=== PATIENT | female | born 1975 | race Caucasian/White ===

== ENCOUNTER 2016-11-16 18:11 | Emergency (ER) | payer OTHER ==
[2016-11-16 20:10] LABS: BASOPHILS 0.2 % (0.0-2.0); EOSINOPHILS 3.5 % (0-7); HEMATOCRIT 39.6 % (36.0-48.0); HEMOGLOBIN 13.4 g/dL (12-16); IMMATURE GRANULOCYTES 0.2 % (0-5); LYMPHOCYTES 27.1 % (15-50); MCH 31.9 pg (26.0-34.0); MCHC 33.8 g/dL (31.0-37.0); MCV 94.3 fL (80.0-100.0); MEAN PLATELET VOLUME 10.6 fL (7.4-10.4); MONOCYTES 8.4 % (2-11); NEUTROPHILS 60.6 % (40-80); PLATELET COUNT 254 10x3/uL (130-400); RDW 12.8 % (11.5-14.5); WBC 10.3 10x3/uL (4.8-10.8)
[2016-11-16 20:52] LABS: APPEARANCE CLEAR (CLEAR); BILIRUBIN NEGATIVE (NEGATIVE); COLOR YELLOW (YELLOW); GLUCOSE NEGATIVE (NEGATIVE); KETONE NEGATIVE (NEGATIVE); LEUKOCYTE ESTERASE NEGATIVE (NEGATIVE); NITRITE NEGATIVE (NEGATIVE); PROTEIN NEGATIVE (NEGATIVE); SPECIFIC GRAVITY 1.015 (1.005-1.020); UROBILINOGEN NORMAL (NORMAL)
[2016-11-16 20:54] LABS: WHITE CELLS - URINE OCC /hpf (0-5)
[2016-11-16 20:55] LABS: BACTERIA FEW /hpf (NONE SEEN); EPITHELIAL CELLS OCC /hpf (0-5); RED CELLS - URINE 0-5 /hpf (0-5)
== END 2016-11-17 08:14 | disposition home or self-care (01) ==
LOC: D.ER 18:11
PROVIDERS: Emergency Medicine
DX: R10.9 Unspecified abdominal pain (principal); I10 Essential (primary) hypertension

== ENCOUNTER → 2016-11-26 08:15 | Outpatient (CLI) | payer OTHER | END | disposition home or self-care (01) | LOC: D.US 08:15 | DX: R10.11 Right upper quadrant pain (principal) ==

== ENCOUNTER → 2016-12-11 08:03 | Outpatient (CLI) | payer OTHER | END | disposition home or self-care (01) | LOC: D.NM 08:03 | DX: R10.9 Unspecified abdominal pain (principal) ==

== ENCOUNTER 2017-01-11 05:03 | Day surgery (SDC) | payer OTHER ==
[2017-01-08 11:48] LABS: HEMOGLOBIN 13.7 g/dL (12-16); MCH 32.2 pg (26.0-34.0); MCHC 34.3 g/dL (31.0-37.0); MCV 93.9 fL (80.0-100.0); MEAN PLATELET VOLUME 10.7 fL (7.4-10.4); RBC 4.26 10x6/uL (4.00-5.40); RDW 12.4 % (11.5-14.5); WBC 8.9 10x3/uL (4.8-10.8)
[~2017-01-11] VITALS: Ht 162.6 cm; Wt 94.3 kg
[~2017-01-11 05:03] MED LIST: COLACE100 MG PO; HYDROCODON-ACE1 EAC7 PO; LEVOTHYROXINE50 MCG PO; LISINOPRIL10 MG PO; OMEPRAZOLE20 M1 PO; ZOFRAN ODT4 MG/UDTAB PO
[2017-01-11 07:14] VITALS: BP 117/77; Ht 162.6 cm; Wt 94.3 kg
[2017-01-11] MEDS ORDERED: HYDROCODON-ACE1 EAC7 PO (09:09)
--- NOTE | 2017-01-11 10:14 | NUR ---
1000 NAUSEA, BASIN GIVEN, COOL CLOTHS AND ALCOHOL SWABS PROVIDED
--- NOTE | 2017-01-11 22:58 | OP ---
PATIENT NAME: ALEIDA PRIETO MEDICAL RECORD: [id number] :[birth year] [facility] ADMISSION DATE: SURGEON: DAREN FLOYD MD DATE OF OPERATION: 01/11/2017 SURGEON: Daren Floyd MD. PREOPERATIVE DIAGNOSES: 1. Biliary dyskinesia. 2. Right upper quadrant pain, history of gallstone pancreatitis 6 years ago. POSTOPERATIVE DIAGNOSES: 1. Biliary dyskinesia. 2. Right upper quadrant pain, history of gallstone pancreatitis 6 years ago. PROCEDURE PERFORMED: Laparoscopic cholecystectomy. ANESTHESIA: General. COMPLICATIONS: None. OPERATIVE COURSE: After consent was obtained, the patient was taken to the operating room and placed in supine position on the operating table. Next, general anesthesia was given via endotracheal intubation after a timeout was taken to confirm the correct patient and procedure. The abdomen was prepped and draped in typical sterile fashion. Local anesthetic was injected just above the umbilicus. A stab incision was made with 11-blade scalpel. Using a 5-mm bladeless optical trocar, the abdomen was entered under direct laparoscopic vision. Adequate pneumoperitoneum was achieved. The abdominal cavity was inspected. No evidence of bowel injury. No evidence of bleeding. The patient was then placed in the steep reverse Trendelenburg position. All remaining trocars were placed after the administration of local anesthetic, two 5-mm trocars in the right upper quadrant and 11-mm trocar in the subxiphoid position. The fundus of the gallbladder was grasped and retracted cephalad. The fundus of the gallbladder was grasped and retracted laterally. The peritoneum was incised using electrocautery. Blunt dissection was then performed with a [place] dissector until the critical view was obtained. The cystic duct lateral, cystic artery medial, liver in the posterior window. Three clips were placed in the proximal cystic duct, 1 clip distal and 2 clips were placed in the proximal cystic artery. The duct and artery were then transected with laparoscopic Metzenbaum scissors. The remaining portion of the gallbladder was dissected off the liver bed using electrocautery. Once complete, it was grasped with the tenaculum and removed through the 11-mm trocar and sent for permanent pathology. The operative field was then copiously irrigated and suctioned. Careful attention was paid to hemostasis, which was obtained in the liver bed using electrocautery. Again, at this time, the abdominal cavity was copiously irrigated and suctioned. There is no evidence of bowel injury. No evidence of bleeding. The operative site was inspected. There were [address] in the duct, [address] in the artery. There was no evidence of bleeding or bile leak from the liver bed. At this time, all remaining instruments were removed. The abdomen was desufflated. Trocars removed. Skin was closed with 4-0 Monocryl, Mastisol and Steri-Strips. At the end of the case, all needle and instrument counts were correct. No complications occurred. The patient was extubated and transferred to the PACU in stable condition. OPERATIVE REPORT [id number] ALEIDA PRIETO TRANSINT:[id number] Voice Confirmation ID: [id number] DOCUMENT ID: [id number] DAREN FLOYD MD at 2258 CC: [id number] DICTATION DATE: 01/11/17905 ECHOCARDIOGRAPHY RADIOLOGY TECHNOLOGIST: 01/11/17 1239 [facility] 01/11/17 [id number] [place] [address]
== END 2017-01-11 13:00 | disposition home or self-care (01) ==
LOC: D.OPS 05:03 → D.PAN 07:30 → D.OPS 08:30
PROVIDERS: Anesthesiology
DX: K82.8 Other specified diseases of gallbladder (principal)

== ENCOUNTER → 2017-09-17 16:09 | Outpatient (CLI) | payer OTHER, BC ==
[2017-01-11 07:14] VITALS: BMI 35.8
== END | disposition home or self-care (01) ==
LOC: D.CT 16:09
DX: N20.0 Calculus of kidney (principal)

== ENCOUNTER → 2017-11-16 11:03 | Outpatient (CLI) | payer OTHER, BC ==
[2017-01-11 07:14] VITALS: BMI 35.8
== END | disposition home or self-care (01) ==
LOC: D.NM 11:03
DX: R10.10 Upper abdominal pain, unspecified (principal)

== ENCOUNTER 2019-04-25 10:56 | Observation (INO) | payer BC, MEDICAID ==
[2019-04-25] VITALS (9 sets, daily range): BP systolic 104–133; BP diastolic 65–81; Ht 160 cm; Wt 76.9 kg
[~2019-04-25] VITALS: Ht 160 cm; Wt 76.9 kg
--- NOTE | ~2019-04-25 | HEMODYNAMI ---
PATIENT:ALEIDA PRIETO MEDICAL RECORD: [id number] : [birth year] LOCATION:[facility] D.2123 ADMISSION DATE: 04/25/19 Generatedon:04/26/201915:11 Patient name: ALEIDA PRIETO Patient #: [id number] SSN: [id number] : 1975 Date of study: 04/26/2019 Page: Of Hemodynamic Procedure Report Patient Data Patient Demographics Procedure consent was obtained First Name: ALEIDA Gender: Female Last Name: CONNER : 1975 Patient #: [id number] Age: 43 year(s) Race: SSN: [id number] Additional ID: [id number] Contact details Address: [address] [place] [address] State: [place] City: [place] Zip code: [address] Past Medical History Allergies Allergen Reaction Date Comments Reported Other allergy 04/26/2019 iodine, nexium Admission Admission Data Admission Date: 04/25/2019 Admission Time: 13:17 Arrival Date: 04/26/2019 Arrival Time: 0:00 Admit Source: Emergency Insurance Payor: Private department health insurance, Medicaid Room #: D.2123 [facility] #: [id number] Height (in.): 62.99 BSA: 1.79 (m2) Height (cm.): 160 BMI: 29.69 (kg/m2) Weight (lbs.): 167.55 Weight (kg.): 76 Lab Results Lab Result Date: 04/26/2019 Lab Result Time: 5:27 Biochemistry Name Units Result Min Max BUN mg/dl 13 --(--*-)-- 7 18 Creatinine mg/dl 0.8 --(-*--)-- 0.6 1.3 CBC Name Units Result Min Max Hematocrit % 39 *-(----)-- 42 54 Hemoglobin g/dl 13.6 --(*---)-- 13.5 17.5 Procedure Procedure Types Cath Procedure Diagnostic Procedure [facility] w/Coronaries Procedure Description Procedure Date Procedure Date: 04/26/2019 Procedure Start Time: 14:56 Procedure End Time: 15:07 Procedure Staff Name Function Johnson Magana MD Performing Physician Gladys Cisneros RT Monitor Rolando Villatoro RT Scrub Lobo Tsai RN Nurse Rajesh Sarkar RN Program Schedule Clerk Indication Angina Procedure Data Cath Procedure Fluoroscopy Diagnostic fluoroscopy Total fluoroscopy Time: 1.5 time: 1.5 min min Diagnostic fluoroscopy Total fluoroscopy dose: 285 dose: 285 mGy mGy Contrast Material Contrast Material Type Amount (ml) Isovue 300 32 Entry Location Entry Primary Successful Side Size Upsize Upsize Entry Closure [place] ccessful Closure Location (Fr) 1 (Fr) 2 (Fr) Remarks Device Remarks Radial Right 6 Fr Mechanical artery Short Compression Estimated blood loss: 5 ml Diagnostic catheters Device Type Used For End Catheter Placement DIAGNOSTIC Willard 110cm 5 Procedure Fr catheter ([id number]) Procedure Complications No complications Procedure Medications Medication Administration Route Dosage Oxygen etCO2 Nasal cannula 2 l/min Lidocaine 2% added to field 20 Heparin Flush Bag added to field 2 bags (1000units/500ml NS) 0.9% NaCl I.V. 100 ml/hr Versed I.V. 2 mg Fentanyl I.V. 100 mcg Versed I.V. 1 mg Fentanyl I.V. 50 mcg Versed I.V. 1 mg Fentanyl I.V. 50 mcg Versed I.V. 0.5 mg Hemodynamics Rest BSA: 1.79 (m2) O2 Consumption: Estimated: 195.76 (ml/min) O2 Consumption indexed : Estimated:109.36 (ml/min/m) Heart Rate: 92 (bpm) Pressure Samples Time Site Value (mmHg) Purpose Heart Use Rate(bpm) 15:01 LV 121/19,12 Snapshot 92 15:01 AO 88/65(77) Pullback 85 15:01 LV 93/10,15 Pullback 85 Gradients Valve Time Site 1 Site 2 Mean SEP/DFP Peak To Heart Use (mmHg) (sec/min) Peak Rate (mmHg) (bpm) Aortic 15:01 LV AO 4 15 5 85 93/10,15 88/65(77) Calculations Valve P-P Mean Valve Index Valve Source Name Gradient Area Flow (cm2) Aortic 5 4 5 4 Snapshots Pre Cath Intra NCS Post Cath Vital Signs Time Heart Resp SPO2 etCO2 NIBP Rhythm Pain Sedation Rate (ipm) (%) (mmHg) (mmHg) Status Level (bpm) 14:50:02 65 16 97 25.5 104/67(78) NSR 0 (11) 10(A) , No pain 14:55:54 68 17 94 29.2 90/57(82) NSR 0 (11) 10(A) , No pain 15:00:05 76 14 93 36.7 95/53(67) NSR 0 (11) 9(A) , No pain 15:06:40 72 15 94 36 96/74(89) NSR 0 (11) 9(A) , No pain 15:09:59 74 14 94 34.5 93/65(85) NSR 0 (11) 10(A) , No pain Medications Time Medication Route Dose Verified Delivered Reason Notes Eff ectiveness by by 14:41:42 Oxygen etCO2 2 Johnson Rajesh used for Nasal l/min Lexa Antonina procedure cannula MD HOPSON 14:41:50 Lidocaine 2% added 20ml Johnson Johnson for local to vial [facility] anesthetic field MD CAMARA 14:41:57 Heparin Flush added 2 Johnson Johnson used for Bag to bags [facility] procedure (1000units/500ml field MD CAMARA NS) 14:42:07 0.9% NaCl I.V. 100 Johnson Rajesh Per ml/hr St Matt Sarkar physician RN 14:50:03 Versed I.V. 2 mg Johnson Buffie for St Matt Tsai RN sedation 14:50:09 Fentanyl I.V. 100 Johnson Buffie for [facility] St Matt Tsai RN sedation 14:55:15 Versed I.V. 1 mg Johnson Buffie for IzzyMatt Tsai RN sedation 14:55:19 Fentanyl I.V. 50 Johnson Buffie for mcg IzzyMatt Tsai RN sedation 15:00:56 Versed I.V. 1 mg Johnson Buffie for IzzyMatt Tsai RN sedation 15:01:00 Fentanyl I.V. 50 Johnson Buffie for [facility] IzzyMatt Tsai RN sedation 15:04:32 Versed I.V. 0.5 Johnson Buffie for mg St Matt Tsai RN sedation Procedure Log Time Note 14:23:01 Informed consent obtained and on chart 14:25:25 Rajesh Sarkar RN sent for patient. Start room use. 14:33:05 Patient allergic to Other allergyiodine, nexium 14:34:22 Admit Source: Emergency department 14:34:28 Arrival Date: 04/26/2019 12:00:00 AM 14:34:40 Insurance Payor : Private health insurance, Medicaid 14:35:05 Patient Height : 62.99 inches 14:35:08 Patient Weight : 167.55 lbs 14:36:44 Lab Result : BUN 13 mg/dl 14:36:44 Lab Result : Hematocrit 39 % 14:36:44 Lab Result : Hemoglobin 13.6 g/dl 14:36:44 Lab Result : Creatinine 0.8 mg/dl 14:37:31 Indication : Angina 14:38:02 ACC Patient presents with Unstable Angina CCS Anginal Class 4--Inability to carry out any physical activity w/o angina. Angina may occur at rest. 14:38:09 ACCPatient has been prescribed/administered the following anti-anginal medication within the last 2 weeks: KAVITHA-Inhibitor 14:38:20 Procedure Status Urgent Heart Cath (IP). 14:38:47 Time tracking: Regular hours (M-F 7:00 - 5:00) 14:38:59 Plan of Care:Hemodynamics will remain stable., Cardiac rhythm will remain stable., Comfort level will be maintained., Respiratory function will remain adequate., Patient/ family verbilizes understanding of procedure., Procedure tolerated without complication., Recovers from procedure without complications.. 14:39:13 Patient received from Med II to CCL 1 Alert and oriented. Tansferred to table in Supine position. 14:39:15 Warm blankets applied, and sherley hugger turned on for patient comfort. 14:39:16 Correct patient and procedure confirmed by team. 14:39:17 ECG and BP/O2 sat monitors applied to patient. 14:39:43 H&P Date Dictated: 04/25/2019 Within 30 days and on chart.. 14:39:45 Pre-procedure instructions explained to patient. 14:39:47 Pre-op teaching completed and patient verbalized understanding. 14:39:51 Family in patients room. 14:39:55 Patient NPO since Breakfast. 14:41:42 Oxygen 2 l/min etCO2 Nasal cannula was administered by Rajesh Sarkar RN; used for procedure; 14:41:50 Lidocaine 2% 20ml vial added to field was administered by Johnson Magana MD; for local anesthetic; 14:41:57 Heparin Flush Bag (1000units/500ml NS) 2 bags added to field was administered by Johnson Magana MD; used for procedure; 14:42:07 0.9% NaCl 100 ml/hr I.V. was administered by Rajesh Sarkar RN; Per physician; 14:43:42 Is patient on blood thinner?Yes 14:43:51 PRE LOADED ON PLAVIX 14:43:52 Patient diabetic? No. 14:43:55 Patient not . Patient has had tubal. 14:44:01 Previous problem with sedation/anesthesia? No ? 14:44:03 Snore? Yes 14:44:07 Sleep apnea? No 14:44:09 Deviated septum? No 14:44:10 Opens mouth fully? Yes 14:44:11 Sticks out tongue? Yes 14:44:15 Airway obstruction? No ? 14:44:17 Dentures? No ? 14:44:20 Is the patient allergic to Iodine/contrast media? Yes. 14:44:21 Was the patient premedicated? Yes 14:44:38 Modified Yrn's test Ulnar < 7 seconds 14:44:40 Patient pain scale 0/10 ?. 14:44:44 IV patent on arrival in right antecubital with 0.9% NaCl at [facility]. 14:44:46 Lab results completed and on chart. 14:44:50 Right Radial & Right Groin area was prepped with chlora-prep and draped in sterile fashion 14:44:51 Alarms reviewed by R. N. 14:44:51 Sharps counted by scrub and verified by R.N. 14:49:41 --------ALL STOP TIME OUT------ 14:49:42 Final Timeout: patient, procedure, and site verified with staff and physician. All members of the team are in agreement. 14:49:45 Right Radial & Right Groin site verified by team. 14:49:49 Fire Safety Assessment: A--An alcohol-based skin anteseptic being used preoperatively., C--Open oxygen or nitrous oxide is being used., D--An ESU, laser, or fiber-optic light is being used. 14:49:56 Physical assessment completed. ASA score P 2 - A patient with mild systemic disease as per Johnson Magana MD. 14:49:58 2) 60-89 Mildly reduced kidney function, and other findings (as for stage 1) point to kidney disease. 14:50:01 Maximum allowable contrast dose (3.7 X eGFR X 0.75)230 ml. 14:50:03 Versed 2 mg I.V. was administered by Lobo Tsai RN; for sedation; 14:50:06 Sedation plan: IV Moderate Sedation Medication:Versed, Fentanyl 14:50:09 Fentanyl 100 mcg I.V. was administered by Lobo Tsai RN; for sedation; 14:50:13 Use device set Radial Dx or PCI 14:50:26 ACIST Syringe (54644) opened to sterile field. 14:50:28 Bag Decanter (2002S) opened to sterile field. 14:50:29 ACIST Hand Control (47322) opened to sterile field. 14:50:29 ACIST Manifold (49700) opened to sterile field. 14:50:30 Tegaderm 4 x 4 (1626W) opened to sterile field. 14:50:35 Medline Cath Pack ([id number]) opened to sterile field. 14:50:39 MBrace Wrist Support (889351877) opened to sterile field. 14:51:08 EMERALD Guide Wire (508-085) opened to sterile field. 14:51:10 SHEATH 6FR RAIN (7599389) opened to sterile field. 14:55:13 Zero performed for pressure channel P1 14:55:15 Versed 1 mg I.V. was administered by Lobo Tsai RN; for sedation; 14:55:17 Procedure started. 14:55:17 Full Disclosure recording started 14:55:19 Fentanyl 50 mcg I.V. was administered by Lobo Tsai RN; for sedation; 14:55:43 Zero performed for pressure channel P1 14:56:00 Zero performed for pressure channel P1 14:56:07 Zero performed for pressure channel P1 14:56:18 Local anesthetic to right femoral artery with Lidocaine 2% by Johnson Magana MD.INITIAL ACCESS ONLY 14:56:49 Vital chart was started 14:58:58 A 6 Fr Short sheath was inserted into the Right Radial artery 14:59:22 A DIAGNOSTIC Willard 110cm 5 Fr catheter (462670) was advanced over the wire and used for Procedure. 15:00:56 Versed 1 mg I.V. was administered by Lobo Tsai RN; for sedation; 15::00 Fentanyl 50 mcg I.V. was administered by Lobo Tsai RN; for sedation; 15::05 LV gram done using HERNANDEZ 15::09 Injector settings: Ml/sec: 7, Volume: 15, 15:01:26 LV hemodynamics recorded. 15:01:47 EF : 55 % 15:02:14 RCA angiography performed. 15:03:18 LCA angiography performed. 15:03:23 Catheter removed. 15::25 ACCDominant side:Right 15:04:04 Procedure ended.(Physican Out) 15:04:28 Sheath removed intact; hemostasis achieved with Mechanical Compression to the Right Radial artery. 15:04:32 Versed 0.5 mg I.V. was administered by Lobo Tsai RN; for sedation; 15:05:13 Fluoroscopy time 01.50 minutes. 15:05:18 Fluoroscopy dose: 285 mGy 15::18 Flurop Dose total: 285 15::24 Dose Area Product 10207. mGy/cm. 15:05:27 Contrast amount:Isovue 300 32ml. 15:05:29 Maximum allowable dose exceeded? No. 15:05:36 ZEPHYR REGULAR TR BAND (095780) opened to sterile field. 15:05:39 Sharps counted by scrub and verified by R.N. 15:05:41 Carey band inflated with 8cc of air. 15:06:09 Post-procedure physical assessment completed. ASA score P 2 - A patient with mild systemic disease as per Johnson Magana MD. 15:06:12 Post procedure rhythm: sinus rhythm 15:06:15 Estimated blood loss: 5 ml 15:06:18 Post procedure instruction explained to patient.Patient verbalizes understanding. 15:06:18 Patient needs reinforcement of post procedure teaching. 15:06:39 Procedure and supply charges have been captured, reviewed, submitted and are correct. 15:07:07 Procedure Complication : No complications 15:07:09 Vital chart was stopped 15:07:09 See physician's report for complete and final results. 15:07:11 Report given to Pre/Post Procedure Room. 15:07:13 Patient transfered to Pre/Post Procedure Room with Bed. 15:07:21 Procedure ended. 15:07:21 Full Disclosure recording stopped 15:07:33 End room use (Document Last) Device Usage Item Name Manufacture Quantity Catalog Hospital Part Current [facility] l Lot# / Number Charge Number Stock Stock Serial# Code ACIST Acist 1 28984 [id number] 803094 027359 20 Syringe Medical (49060) Systems Inc Bag Microtek 1 2001S 038839 84874 483940 5 Decanter Medical Inc. (2001S) ACIST Hand Acist 1 05410 603779 146791 280026 5 Control Medical (65782) Systems Inc ACIST Acist 1 76270 278971 879683 351495 5 Manifold Medical (85072) Systems Inc Tegaderm 4 3M 1 1626W 617855 719483 482405 5 x 4 (1626W) Medline Medline 1 [id number] 495343 10026 573682 5 Cath Pack (WXXY80212) MBrace Advanced 1 140-0250-00 581432 52891 183784 5 Wrist Vascular Support Dynamics (339852297) EMERALD Cardinal 1 502455 577881 329841 112493 5 Guide Wire Health (673-455) SHEATH 6FR Cardinal 1 0471023 359389 1671081 170527 5 [facility] Health (9138421) DIAGNOSTIC Terumo 1 40-1790 926680 994074 030517 5 Willard 110cm 5 Fr catheter (738785) ZEPHYR Cardinal 1 343419 248562 3122399 819135 5 REGULAR TR Health BAND (147280) Signature Audit Peytona Stage Time Signature Unsigned Intra-Procedure 04/26/2019 Gladys Cisneros 3:11:20 PM RT(R) Signatures Performing Physician : Signature : Johnson Magana MD Date : Time : Monitor : Gladys Cisneros Signature : RT Date : Time : Nurse : Lobo Tsai RN Signature : Date : Time : [address] [place] [address]
[2019-04-25] MEDS ORDERED: IMIPRAMINE10 MG PO (11:06)
[2019-04-25] MEDS ORDERED: ELAVIL25 MG PO (11:07)
[2019-04-25] MEDS ORDERED: FAMOTIDINE10 MG PO (11:07)
[2019-04-25] MEDS ORDERED: SYNTHROID50 MCG PO (11:08)
[2019-04-25] MEDS ORDERED: PROTONIX40 MG PO (11:09)
[2019-04-25] MEDS ORDERED: ZYPREXA10 MG PO (11:10)
[2019-04-25] MEDS ORDERED: SYNTHROID100 MCG PO (11:11)
[2019-04-25] MEDS ORDERED: PREVALITE POWD231 GM PO (11:12)
[2019-04-25 11:40] LABS: BASOPHILS 0.1 % (0-2); EOSINOPHILS 0.1 % (0-7); HEMATOCRIT 37.9 % (36.0-48.0); HEMOGLOBIN 13.3 g/dL (12-16); IMMATURE GRANULOCYTES 0.2 % (0-5); LYMPHOCYTES 16.8 % (15-50); MCH 32.3 pg (26.0-34.0); MCHC 35.1 g/dL (31.0-37.0); MEAN PLATELET VOLUME 10.4 fL (7.4-10.4); MONOCYTES 6.6 % (2-11); NEUTROPHILS 76.2 % (40-80); PLATELET COUNT 226 10x3/uL (130-400); RBC 4.12 10x6/uL (4.00-5.40); RDW 13.3 % (11.5-14.5)
[2019-04-25 11:52] LABS: APTT 28.8 SECONDS (22.8-39.4); INR 1.24 (0.85-1.17)
[2019-04-25 11:54] LABS: ALBUMIN 3.6 g/dL (3.4-5.0); ALKALINE PHOSPHATASE 74 U/L (46-116); ALT (SGPT) 21 U/L (10-68); BILIRUBIN - TOTAL 0.35 mg/dL (0.2-1.3); CALC OSMOLALITY 277 mosm/kg (275-300); CALCIUM 8.7 mg/dL (8.5-10.1); CARBON DIOXIDE 28.4 mmol/L (21.0-32.0); CHLORIDE - SERUM 103 mmol/L (98-107); CREATININE - SERUM 0.9 mg/dL (0.6-1.3); GLUCOSE 95 mg/dL (74-106); POTASSIUM - SERUM 3.8 mmol/L (3.5-5.1); PROTEIN - SERUM 7.5 g/dL (6.4-8.2); SODIUM 139 mmol/L (136-145); UREA NITROGEN 13 mg/dL (7-18); eGFR NON AFRICAN AMERICAN 73 mL/min (90-120)
[2019-04-25 12:04] LABS: CKMB 0.6 U/L (0.0-3.6); CREATINE KINASE 49 UL (21-215); MAGNESIUM - SERUM 1.8 mg/dL (1.8-2.4); TROPONIN-I < 0.017 ng/mL (0.000-0.060)
[2019-04-25 14:57] LABS: LDL-HDL RATIO 3.5 ratio (1.5-3.5)
[2019-04-25 18:21] LABS: CKMB 0.4 U/L (0.0-3.6); CREATINE KINASE 44 UL (21-215); TROPONIN-I < 0.017 ng/mL (0.000-0.060)
[2019-04-25 23:39] LABS: CKMB 0.5 U/L (0.0-3.6); CREATINE KINASE 39 UL (21-215); TROPONIN-I < 0.017 ng/mL (0.000-0.060)
[2019-04-26] VITALS: BP 125/70
[2019-04-26 04:30] VITALS: BP 108/56
[2019-04-26 06:37] LABS: BASOPHILS 0.1 % (0-2); EOSINOPHILS 0 % (0-7); HEMOGLOBIN 13.6 g/dL (12-16); IMMATURE GRANULOCYTES 0.4 % (0-5); LYMPHOCYTES 13.4 % (15-50); MCH 31.9 pg (26.0-34.0); MCHC 34.9 g/dL (31.0-37.0); MCV 91.5 fL (80.0-100.0); MEAN PLATELET VOLUME 10.9 fL (7.4-10.4); NEUTROPHILS 80.1 % (40-80); RBC 4.26 10x6/uL (4.00-5.40); RDW 13.6 % (11.5-14.5); WBC 11.8 10x3/uL (4.8-10.8)
[2019-04-26 06:41] LABS: PLATELET COUNT 276 10x3/uL (130-400)
[2019-04-26 07:28] LABS: ALBUMIN 3.8 g/dL (3.4-5.0); ALKALINE PHOSPHATASE 74 U/L (46-116); ALT (SGPT) 26 U/L (10-68); BILIRUBIN - TOTAL 0.45 mg/dL (0.2-1.3); CALC OSMOLALITY 277 mosm/kg (275-300); CALCIUM 9.2 mg/dL (8.5-10.1); CARBON DIOXIDE 24.3 mmol/L (21.0-32.0); CHLORIDE - SERUM 103 mmol/L (98-107); CKMB 0.7 U/L (0.0-3.6); CREATINE KINASE 37 UL (21-215); CREATININE - SERUM 0.8 mg/dL (0.6-1.3); GLUCOSE 107 mg/dL (74-106); POTASSIUM - SERUM 4.2 mmol/L (3.5-5.1); PROTEIN - SERUM 7.9 g/dL (6.4-8.2); SODIUM 139 mmol/L (136-145); TROPONIN-I < 0.017 ng/mL (0.000-0.060); UREA NITROGEN 13 mg/dL (7-18); eGFR NON AFRICAN AMERICAN 83 mL/min (90-120)
[2019-04-26 07:56] VITALS: BP 109/75
[2019-04-26 11:26] VITALS: BP 106/50
[2019-04-26 13:45] VITALS: BP 102/61
--- NOTE | 2019-04-27 15:51 | OP ---
PATIENT NAME: ALEIDA PRIETO MEDICAL RECORD: [id number] :[birth year] LOCATION:[facility] ADMISSION DATE:04/25/19 SURGEON: HARSHIL KINGSTON MD DATE OF OPERATION: 04/26/2019 PROCEDURE: Left heart catheterization, selective coronary angiography, right radial approach. CATHETERS: Radial sheath, [place] catheter. The procedure was well tolerated. The patient was returned to [place]. Sheath was removed. TR band was placed. FINDINGS: Left ventriculography 30-degree HERNANDEZ view: Normal wall motion and normal systolic function. CORONARY ANATOMY: LEFT MAIN: Left main is free of disease. LAD: Free of disease in the diagonal system. CIRCUMFLEX: Free of disease in the marginal system. RIGHT CORONARY ARTERY: Dominant, gives rise to PDA, free of disease. IMPRESSION: Normal left ventricular systolic function. Normal coronary anatomy. TRANSINT:[id number] Voice Confirmation ID: [id number] DOCUMENT ID: [id number] HARSHIL KINGSTON MD at 1551 CC: [id number] DICTATION DATE: 04/26/19 1511 OCCUPATIONAL THERAPY TEACHER: 04/26/19 2237 DIS IN 04/26/19 [facility] [address] [place] [address]
--- NOTE | 2019-05-03 14:31 | EC ---
PATIENT:ALEIDA PRIETO DATE OF SERVICE: 04/25/19 SEX: F MEDICAL RECORD: [id number] DATE OF : [birth year] LOCATION:[facility] AGE OF PATIENT: 43 ADMISSION DATE: 04/25/19 REFERRING PHYSICIAN: INTERPRETING PHYSICIAN: AN OSORIO MD ECHOCARDIOGRAM REPORT ECHO CHARGES 4 ECHO COMPLETE Date: 04/26/19 CLINICAL DIAGNOSIS: CHEST PAIN ECHOCARDIOGRAPHIC MEASUREMENTS (adult normal given) AC root (d.<3.7cm) 3.0 cm LV Septum d (<1.2 cm> 1.1 cm Valve Excursion 1.0 cm LV Septum (systole) 1.2 cm Left Atria (s.<4.0cm> 3.9 cm LVPW d(<1.2cm) 1.2 cm RV (d.<2.3cm) 3.6 cm LVPW (sytole) 1.4 cm LV diastole(<5.6CM) 4.4 cm MV E-F(>70mm/sec) cm LV systole 3.2 cm LVOT Diameter 1.6 cm MV exc.(>10mm) 1.3 cm Est.ejection fraction (50-75%) % DOPPLER: LVIT cm/sec A 79.0 cm/sec E 72.0 cm/sec LA cm/sec RVSP 24 mmHg LVOT 90 cm/sec AOP1/2T m/s Asc. Ao 121 cm/sec RVOT 65 cm/sec RA cm/sec PA 112 cm/sec AV Gradient Peak 5.82 mmHg AV Mean 3.10 mmHg AV Area 1.7 cm MV Gradient Peak 2.59 mmHg MV Mean 0.99 mmHg MV Area cm COMMENTS: Paper Goods Machine Operator: Rosie GARCIA Scrap Metal Burner: 3 Dr. Kilgore TAPE# PACS Pericardial Effusion N DATE OF SERVICE: 04/26/2019 PROCEDURE: Echocardiogram. FINDINGS: 1. Left ventricular chamber size is within normal limits. Left ventricular systolic function is normal. Overall ejection fraction estimated at 65%. 2. Left atrium, right atrium and right ventricular chamber sizes are within normal limits. 3. Valvular structures have normal structure and motion. ECHOCARDIOGRAM REPORT [id number] ALEIDA PRIETO 4. Doppler interrogation reveals no significant valvular insufficiency or stenosis. Pulmonary systolic pressure is estimated at 24 mmHg. 5. No evidence of pericardial effusion or left ventricular thrombus. TRANSINT:[id number] Voice Confirmation ID: [id number] DOCUMENT ID: [id number] AN OSORIO MD at 1431 CC: [id number] DICTATION DATE: 04/27/19 1219 ROUTE JUMPER: 04/27/19 1237 DIS IN 04/26/19 [id number] [place] [id number]
== END 2019-04-26 17:10 | disposition home or self-care (01) ==
LOC: D.ER 10:56 → D.M2 13:17 → OBSVTIME 13:21 → D.CLR 04-26 15:20
PROVIDERS: Family Medicine; ADMIT Internal Medicine Interventional Cardiology; ATTEND Internal Medicine Interventional Cardiology
DX: I20.0 Unstable angina (principal); I10 Essential (primary) hypertension; E66.9 Obesity, unspecified; F17.200 Nicotine dependence, unspecified, uncomplicated; Z82.49 Family history of ischemic heart disease and other diseases of the circulatory system

== ENCOUNTER → 2019-07-24 16:30 | Outpatient (CLI) | payer BC, MEDICAID ==
[~2019-07-24 16:30] MED LIST changes: +ELAVIL25 MG PO; +FAMOTIDINE10 MG PO; +IMIPRAMINE10 MG PO; +PREVALITE POWD231 GM PO; +PROTONIX40 MG PO; +SYNTHROID100 MCG PO; +SYNTHROID50 MCG PO; +ZYPREXA10 MG PO
[2019-07-24 17:14] LABS: LDL-HDL RATIO 4.5 ratio (1.5-3.5)
== END | disposition home or self-care (01) ==
LOC: D.LABREF 16:30
PROVIDERS: ATTEND Internal Medicine Interventional Cardiology
DX: R00.2 Palpitations (principal); I49.3 Ventricular premature depolarization; I34.1 Nonrheumatic mitral (valve) prolapse

== ENCOUNTER → 2020-01-04 09:22 | Outpatient (CLI) | payer BC, MEDICAID | END | disposition home or self-care (01) | LOC: D.NM 09:22 | PROVIDERS: ATTEND Surgery | DX: K31.84 Gastroparesis (principal); R10.9 Unspecified abdominal pain ==

== ENCOUNTER 2020-11-05 10:00 | Outpatient (CLI) | payer MEDICAID | END 2020-11-05 10:30 | disposition home or self-care (01) | LOC: D.MAMMO 10:00 | PROVIDERS: ATTEND Clinical Nurse Specialist Adult Health | DX: Z12.31 Encounter for screening mammogram for malignant neoplasm of breast (principal) ==